=== PATIENT | female | born 1995 | race Caucasian/White ===

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

== ENCOUNTER → 2020-11-05 | Outpatient (CLI) | payer BC ==
[~2020-11-05] MED LIST: CLARITIN 10MG T10 MG PO; ESCITALOPRAM OX20 MG PO; HYDROCHLOROTH12.5 M1 PO; LOW-OGESTREL-21 EACH PO; VITAMIN B-121000 MCG PO; VITAMIN D1000 UNIT PO; VITAMIN D250000 UNIT PO
[2020-11-07 12:15] LABS: AMPHETAMINES, URINE Negative ng/mL (Cutoff=1000); BARBITURATE Negative ng/mL (Cutoff=200); BENZODIAZEPINES Negative ng/mL (Cutoff=200); CANNABINOIDS Negative ng/mL (Cutoff=20); COCAINE (METABOLITE) Negative ng/mL (Cutoff=300); CREATININE 48.8 mg/dL (20.0-300.0); MEPERIDINE Negative ng/mL (Cutoff=200); METHADONE Negative ng/mL (Cutoff=300); OPIATES Negative ng/mL (Cutoff=300); PHENCYCLIDINE Negative ng/mL (Cutoff=25); PROPOXYPHENE Negative ng/mL (Cutoff=300)
== END ==
LOC: LAB 11:50
DX: F50.81 Binge eating disorder (principal)
CPT/HCPCS: 80307